=== PATIENT | male | born 1940 | race Two or more races ===

== ENCOUNTER 2023-08-22 14:20 | Observation (INO) | payer BC, OTHER ==
[2023-08-22 16:51] LABS: HEMATOCRIT 36.9 % (35.4-49); HEMOGLOBIN 12.5 GM/dL (11.7-16.9); MCH 32.3 pg (25.7-33.7); MCHC 33.8 g/dl (32.0-35.9); MEAN CELL VOLUME 95.7 fl (80-96); MEAN PLT VOLUME 6.8 fl (7.5-11.1); PLATELET COUNT 240 10^3/uL (134-434); RBC 3.86 M/mm3 (4.00-5.60); RDW 12.3 % (11.9-15.9); WHITE BLOOD COUNT 10.3 K/mm3 (4.0-10.0)
[2023-08-22 16:54] LABS: INR 1.08 (0.83-1.09); PROTHROMBIN TIME (PATIENT) 12.5 SEC (9.7-13.0)
[2023-08-22 16:57] LABS: ACTIVATED PTT 26.4 SECONDS (25.2-36.5)
[2023-08-22 17:09] LABS: POTASSIUM 3.7 mmol/L (3.5-5.1)
[2023-08-22 17:11] LABS: ALBUMIN 3.4 g/dl (3.4-5.0); BLOOD UREA NITROGEN 18.2 mg/dL (7-18)
[2023-08-22 17:13] LABS: CREATININE 0.9 mg/dL (0.55-1.3)
[2023-08-22 17:16] LABS: BILIRUBIN,TOTAL 0.6 mg/dL (0.2-1); TOT PROT 6.9 g/dl (6.4-8.2)
[2023-08-22 19:45] LABS: OVALOCYTE 1+; TEAR DROP CELLS 0
[2023-08-22 19:50] LABS: PLATELET ESTIMATE ADEQUATE
[2023-08-22 21:50] LABS: URINE APPEARANCE CLEAR; URINE BILIRUBIN NEGATIVE (NEGATIVE); URINE COLOR YELLOW; URINE GLUCOSE (UA) NEGATIVE (NEGATIVE); URINE KETONE NEGATIVE (NEGATIVE); URINE LEUK ESTERASE NEGATIVE (NEGATIVE); URINE NITRITE NEGATIVE (NEGATIVE); URINE PROTEIN NEGATIVE (NEGATIVE); URINE UROBILINOGEN 0.2 mg/dL (0.2-1.0)
[2023-08-22 23:30] LABS: INR 1.1 (0.83-1.09); PROTHROMBIN TIME (PATIENT) 12.8 SEC (9.7-13.0)
[2023-08-22 23:33] LABS: ACTIVATED PTT 30.2 SECONDS (25.2-36.5)
[2023-08-23] MEDS: ACETAMINOPHEN 325 MG TABLET (FP) PO PRN (03:05)
[2023-08-23 08:00] LABS: BASO % 0.3 % (0-2.0); EOS % 0.2 % (0-4.5); HEMATOCRIT 34.8 % (35.4-49); HEMOGLOBIN 11.9 GM/dL (11.7-16.9); LYMPH % 4.6 % (8-40); MCH 32.7 pg (25.7-33.7); MCHC 34.1 g/dl (32.0-35.9); MEAN PLT VOLUME 7.3 fl (7.5-11.1); MONO % 5.3 % (3.8-10.2); NEUT % 89.6 % (42.8-82.8); PLATELET COUNT 229 10^3/uL (134-434); RBC 3.63 M/mm3 (4.00-5.60); RDW 12.1 % (11.9-15.9); WHITE BLOOD COUNT 10.2 K/mm3 (4.0-10.0)
[2023-08-23 08:28] LABS: POTASSIUM 4.1 mmol/L (3.5-5.1)
[2023-08-23 08:38] LABS: BLOOD UREA NITROGEN 17.8 mg/dL (7-18); CALCIUM 8.7 mg/dL (8.5-10.1)
[2023-08-23 08:42] LABS: CREATININE 0.9 mg/dL (0.55-1.3)
[2023-08-23] MEDS ORDERED: LOSARTAN POTASSIUM 50 MG TABLET ONE (11:01)
[2023-08-23] MEDS ORDERED: amLODIPine BESYLATE 5 MG TABLET (FP) ONE (11:01)
[2023-08-23] MEDS: amLODIPine BESYLATE 5 MG TABLET (FP) PO SCH (11:10)
[2023-08-23] MEDS: LOSARTAN POTASSIUM 50 MG TABLET PO SCH (11:10)
[2023-08-23] MEDS ORDERED: ATORVASTATIN CA 10 MG TABLET (FP) ONE (21:17)
[2023-08-23] MEDS: ATORVASTATIN CA 10 MG TABLET (FP) PO SCH (21:40)
[2023-08-24 00:15] VITALS: BMI 25.0
[2023-08-24 14:49] VITALS: RESP 20
[2023-08-24 18:39] VITALS: BP 134/64; PULSE 70; TEMP 98.2
== END 2023-08-24 19:36 | disposition home or self-care (01) ==
LOC: JER 14:20 → JERBED 23:42 → J4W 08-23 23:57
PROVIDERS: ADMIT Internal Medicine; ATTEND Family Medicine
DX: R50.9 Fever, unspecified (principal); R25.1 Tremor, unspecified; I10 Essential (primary) hypertension; M62.81 Muscle weakness (generalized); R55 Syncope and collapse; E78.5 Hyperlipidemia, unspecified; Z90.49 Acquired absence of other specified parts of digestive tract
CPT/HCPCS: 0241U-QW; 36415; 70450-TC; 70551-TC; 71045-TC-FY; 80048; 80053; 81003; 84484; 85025; 85610; 85730; 87040; 87086; 93005; 93010; 97116-GP; 97161-GP; 99285-25; G0378